=== PATIENT | female | born 1995 | race Caucasian/White ===

== ENCOUNTER 2017-07-23 21:26 | Emergency (ER) | payer OTHER ==
[2017-07-23] MEDS ORDERED: Lidocaine 2% VISCOUS* 15 ML UDC SWISH SPIT ONE (22:06)
[2017-07-23] MEDS ORDERED: Amoxicillin/Clavulanate TAB* 875 MG PO ONE (22:06)
[2017-07-23] MEDS ORDERED: Naproxen TAB* 250 MG PO ONE (22:07)
--- NOTE | 2017-07-26 07:08 | UC ---
[facility] HPI - HPI Summary HPI Summary: 21 year old female presents with left lower wisdom tooth pain. - History of Current Complaint Chief Complaint: UCDentalProblem Stated Complaint: TOOTH PAIN,SORE THROAT Time Seen by Provider: 07/23/17 21:52 Hx Last Menstrual Period: 07/13/17 Pain Intensity: 0 Pain Scale Used: 0-10 Numeric - Allergies/Home Medications Allergies/Adverse Reactions: Allergies Allergy/AdvReac Type Severity Reaction Status Date / Time No Known Allergies Allergy Verified 07/23/17 21:38 Home Medications: Home Medications Acetaminophen TAB* [Tylenol TAB*] 2 tab PO DAILY PRN 07/23/17 [History Confirmed 07/23/17] Ibuprofen TAB* [Motrin TAB* 400 MG] 400 mg PO DAILY PRN 07/23/17 [History Confirmed 07/23/17] PMH/Surg Hx/FS Hx/Imm Hx Previously Healthy: Yes - Surgical History Surgical History: None - Social History Alcohol Use: None Substance Use Type: Marijuana Substance Use Comment - Amount & Last Used: occasional Smoking Status (MU): Light Every Day Tobacco Smoker Type: Cigarettes Amount Used/How Often: 1/2 ppd Review of Systems Constitutional: Negative Skin: Negative Eyes: Negative ENT: Dental Pain Respiratory: Negative Cardiovascular: Negative Gastrointestinal: Negative Genitourinary: Negative Motor: Negative Neurovascular: Negative Musculoskeletal: Negative Neurological: Negative Psychological: Negative All Other Systems Reviewed And Are Negative: Yes Physical Exam Triage Information Reviewed: Yes Vital Signs: Initial Vital Signs Temp 36.9 C 07/23/17 21:32 Pulse 76 07/23/17 21:32 Resp 16 07/23/17 21:32 BP 125/65 07/23/17 21:32 Pulse Ox 100 07/23/17 21:32 Vital Signs Reviewed: Yes Eye Exam: Normal ENT Exam: Normal Dental: Positive: Abscess @ Neck exam: Normal Neck: Positive: 1 Respiratory Exam: Normal Cardiovascular Exam: Normal Abdominal Exam: Normal Musculoskeletal Exam: Normal Neurological Exam: Normal Psychological Exam: Normal Skin Exam: Normal Dental Complaint Course/Dx - Differential Dx/Diagnosis Provider Diagnoses: left lower molar pain/swelling Discharge - Discharge Plan Condition: Good Disposition: HOME Prescriptions: Amoxicillin/Clavulanate TAB* [Augmentin TAB 875*] 875 mg PO BID #20 tab Chlorhexidine MW 0.12% 473ML* [Peridex Mouth Wash 0.12%*] 15 ml MT TID PC #480 ml Magic M W2 Abhi/Maal/Nyst/Lido* 5 ml SWISH SPIT QID PRN #120 ml PRN Reason: Pain Naproxen [Naprosyn 500 mg] 500 mg PO BID PRN #30 tab PRN Reason: Pain Patient Education Materials: Toothache (ED) Referrals: Edda Choudhary MD [Primary Care Provider] -
== END 2017-07-23 22:19 | disposition home or self-care (01) ==
LOC: UCCORT 21:26
DX: K08.89 Other specified disorders of teeth and supporting structures (principal); F17.210 Nicotine dependence, cigarettes, uncomplicated
CPT/HCPCS: 99202; A9270-GY; G0463